=== PATIENT | male | born 1960 | race Caucasian/White ===

== ENCOUNTER 2017-10-03 15:57 | Emergency (ER) | payer SELFPAY ==
[2017-10-03 16:04] VITALS: BP 156/83; PULSE 90; TEMP 98.7; BMI 20.9
--- NOTE | 2017-10-03 16:57 | PDOC ---
Suture Removal/Wound Check HPI - History of Present Illness Chief Complaint: Suture/Staple Removal (other) Stated Complaint: SUTURE REMOVAL (OTHER) Time Seen by Provider: 10/03/17 16:45 History Source: Yes: Patient Exam Limitations: Yes: No Limitations Treated at: [facility] ED - Previous ED Treatment Type of procedure performed on last visit: Yes: Laceration Repair Tetanus Immunization: Yes: Up to Date Past History - Past Medical History Allergies/Adverse Reactions: Allergies Allergy/AdvReac Type Severity Reaction Status Date / Time No Known Allergies Allergy Verified 10/03/17 16:00 COPD: No Diabetes: Yes HTN: Yes - Suicide/Smoking/Psychosocial Hx Smoking History: Never smoked Have you smoked in the past 12 months: No Information on smoking cessation initiated: No Hx Alcohol Use: No Drug/Substance Use Hx: No Substance Use Type: None Suture Removal/Wound Check PE - Physical Exam Laceration/Wound Check Symptoms: reports: None Comments: 10/03/17 17:04 nasal bridge with 2 intact simple sutures to a vertical scar Current Severity Level: None *Review of Systems - Review of Systems Able to Perform ROS?: Yes Constitutional: No: Symptoms Reported HEENTM: No: Symptoms Reported Respiratory: No: Symptoms reported Cardiac (ROS): No: Symptoms Reported ABD/GI: No: Symptoms Reported Procedures - Additional Procedures Progress: 10/03/17 17:06 2 simple sutures removed bacitracin placed Medical Decision Making - Medical Decision Making 10/03/17 17:00 cc: suture removal from nose placed at another facility 7 days ago pt has 2 sutures to the nose scabbed laceration well healed edges well approximated scabbing removed CDI 2 simple interrupted sutures removed *DC/Admit/Observation/Transfer Diagnosis at time of Disposition: Visit for suture removal - Discharge Dispostion Disposition: HOME Condition at time of disposition: Good - Referrals - Patient Instructions Printed Discharge Instructions: DI for Suture Removal Additional Instructions: keep clean and dry apply bacitracin once a day until healed - Post Discharge Activity
== END 2017-10-03 17:15 | disposition home or self-care (01) ==
LOC: JERFT 15:57
DX: Z48.02 Encounter for removal of sutures (principal)
CPT/HCPCS: 99281-25